=== PATIENT | female | born 1960 | race African-American/Black ===

== ENCOUNTER 2018-11-20 15:06 | Inpatient (IN) | payer OTHER ==
[2018-11-20 16:37] VITALS: BMI 19.6
--- NOTE | 2018-11-20 21:10 | HP ---
"CIWA Score Nausea/Vomitin-Mild Nausea/No Vomiting Muscle Tremors: 3 Anxiety: 2 Agitation: 3 Paroxysmal Sweats: 3 Orientation: 0-Oriented Tacttile Disturbances: 0-None Auditory Disturbances: 0-None Visual Disturbances: 0-None Headache: 0-None Present CIWA-Ar Total Score: 12 - Admission Criteria OASAS Guidelines: Admission for Medically Managed Detox: Requires at least one of the followin. CIWA greater than 12 2. Seizures within the past 24 hours 3. Delirium tremens within the past 24 hours 4. Hallucinations within the past 24 hours 5. Acute intervention needed for co occurring medical disorder 6. Acute intervention needed for co occurring psychiatric disorder 7. Severe withdrawal that cannot be handled at a lower level of care (continued vomiting, continued diarrhea, abnormal vital signs) requiring intravenous medication and/or fluids 8. Admission ROS S - [facility] Chief Complaint: Here w/ alcohol withdrawal. Allergies/Adverse Reactions: Allergies Allergy/AdvReac Type Severity Reaction Status Date / Time Penicillins Allergy Mild Itching Verified 11/20/18 21:56 History of Present Illness: Here for detox from everything. Alcohol use began at age 8. Cocaine use began at age 23. Nicotine use began at age 13. Heroin use began in 20's. Was stabilized on a MMTP and stopped program 2010. States relapsed w/ heroin 1 week ago. U-tox negative for opiates. Hx: Asthma/COPD , HIV, breast mass Patient receives treatment at the [facility] and was seen there earlier today. States is non-compliant with prescribed medications. Encouraged to f/u w/medical provider upon discharge. Hx schizoaffective depression. Denies thoughts of harming self or others. Denies seizure, blackouts, or overdose. Search Terms: Radha Swanson, 1960 Search Date: 11/20/2018 08:55:35 PM The Drug Utilization Report below displays all of the controlled substance prescriptions, if any, that your patient has filled in the last twelve months. The information displayed on this report is compiled from pharmacy submissions to the Department, and accurately reflects the information as submitted by the pharmacies. This report was requested by: Enda Cedeno | Reference #: [id number] There are no results for the search terms that you entered. Exam Limitations: No Limitations - Ebola screening Have you traveled outside of the country in the last 21 days: No Have you had contact with anyone from an Ebola affected area: No Have you been sick,other than usual withdrawal symptoms: No Do you have a fever: No - Review of Systems Constitutional: Diaphoresis, Loss of Appetite EENT: reports: Blurred Vision (Reading glasses), Dental Problems (Full dentures. Chews and swallows okay.) Respiratory: reports: Shortness of Breath (SOB after smoking.) Cardiac: reports: No Symptoms Reported GI: reports: Poor Appetite : reports: No Symptoms Reported Integumentary: reports: Other (Fever blisters) Neuro: reports: Numbness (Occ in hands), Tremors Endocrine: reports: No Symptoms Reported Hematology: reports: No Symptoms Reported Psychiatric: reports: Judgement Intact, Orientated x3, Anxious, Depressed (Hx schizo affective depression. Denies thoughts of harming self or others.) Patient History - Patient Medical History Hx Anemia: No Hx Asthma: Yes (ON ALBUTEROL INHALER) Hx Chronic Obstructive Pulmonary Disease (COPD): Yes Hx Cancer: No Hx Cardiac Disorders: No Hx Congestive Heart Failure: No Hx Hypertension: No Hx Hypercholesterolemia: No Hx Pacemaker: No HX Cerebrovascular Accident: No Hx Seizures: No Hx Dementia: No Hx Diabetes: No Hx Gastrointestinal Disorders: No Hx Liver Disease: No Hx Genitourinary Disorders: Yes (kidney stones) Hx Sexually Transmitted Disorders: No Hx Renal Disease (ESRD): No Hx Human Immunodeficiency Virus (HIV): Yes (SINCE 1989) Hx Hepatitis C: Yes (UNDER THE CARE) Hx Depression: No Hx Suicide Attempt: No Hx Bipolar Disorder: No Hx Schizophrenia: No - Patient Surgical History Past Surgical History: No Hx Neurologic Surgery: No Hx Cataract Extraction: No Hx Cardiac Surgery: No Hx Lung Surgery: No Hx Breast Surgery: No Hx Breast Biopsy: No Hx Abdominal Surgery: No Hx Appendectomy: No Hx Cholecystectomy: No Hx Genitourinary Surgery: No Hx Section: No Hx Orthopedic Surgery: No Other Surgical History: Left wrist surgery for carpel dlishad. Anesthesia Reaction: No - PPD History Previous Implant?: Yes Documented Results: Negative w/proof Implanted On Prior [facility] Admission?: Yes Date: 11/21/17 Results: 0 mm PPD to be Administered?: Yes - Reproductive History Last Menstrual Period: 10/21/03 - Smoking Cessation Smoking history: Current every day smoker Have you smoked in the past 12 months: Yes Aproximately how many cigarettes per day: 5 Cigars Per Day: 0 Hx Chewing Tobacco Use: No Initiated information on smoking cessation: Yes 'Breaking Loose' booklet given: 11/20/18 - Substance & Tx. History Hx Alcohol Use: Yes Hx Substance Use: Yes Substance Use Type: Alcohol, Cocaine, Heroin (Recent relapse. U-Tox negative) Hx Substance Use Treatment: Yes (detox, rehab, past MMTP) - Substances Abused Alcohol Route: Oral Frequency: Daily Amount used: 3-4 cans BEER Age of first use: 13 Date of Last Use: 11/20/18 Heroin Route: SNIFF Frequency: Daily Amount used: 1 BAG Age of first use: 24 Date of Last Use: 11/18/18 Family Disease History - Family Disease History Family Disease History: Other: Mother (ALCOHOL,) Admission Physical Exam [facility] - Vital Signs Vital Signs: Vital Signs - 24 hr 11/20/18 16:35 Temperature 96.9 F L Pulse Rate 87 Respiratory 20 Rate Blood Pressure 146/77 - Physical General Appearance: Yes: Appropriately Dressed, Mild Distress, Tremorous, Sweating (Increased facial moisture), Anxious HEENTM: Yes: EOMI, Hearing grossly Normal, Normal Voice, KRISTINE (Pupils = 3 mm), Pharynx Normal, Nasal Congestion (mild) Respiratory: Yes: Lungs Clear, Other (Noisy, non-productive cough. No rales or rhonchi.) Neck: Yes: No masses,lesions,Nodules, Supple Breast: Yes: Breast Exam Deferred Cardiology: Yes: Regular Rhythm, Regular Rate, S1, S2, Murmur Abdominal: Yes: Non Tender, Flat, Soft, Increased Bowel Sounds Genitourinary: Yes: Within Normal Limits Back: Yes: Normal Inspection Musculoskeletal: Yes: full range of Motion, Gait Steady Extremities: Yes: Normal Capillary Refill, Normal Range of Motion, Non-Tender, Tremors (Mild tremors when arms extended) Neurological: Yes: investment banking analyst II-XII NML intact, Fully Oriented, Alert, Motor Strength 5/5, Normal Mood/Affect Integumentary: Yes: Normal Color, Warm, Other (crusty blister-like lesions on lips) Lymphatic: Yes: Within Normal Limits - Diagnostic (1) Dyspnea Current Visit: Yes Status: Chronic Qualifiers: Dyspnea type: unspecified Qualified Code(s): R06.00 - Dyspnea, unspecified (2) History of opioid abuse Current Visit: Yes Status: Resolved (3) Alcohol dependence with uncomplicated withdrawal Current Visit: Yes Status: Acute (4) Asthma Current Visit: Yes Status: Acute Qualifiers: Asthma severity: mild Asthma persistence: intermittent Asthma complication type: unspecified Qualified Code(s): J45.20 - Mild intermittent asthma, uncomplicated (5) Cocaine dependence Current Visit: Yes Status: Chronic Qualifiers: Substance use status: uncomplicated Qualified Code(s): F14.20 - Cocaine dependence, uncomplicated (6) HIV (human immunodeficiency virus infection) Current Visit: Yes Status: Chronic Qualifiers: HIV symptom status: unspecified Qualified Code(s): B20 - Human immunodeficiency virus [HIV] disease Comment: pt off meds at this time, self-discontinued (7) Nicotine dependence, uncomplicated Current Visit: Yes Status: Chronic Qualifiers: Nicotine product type: cigarettes Qualified Code(s): F17.210 - Nicotine dependence, cigarettes, uncomplicated Comment: smoking cessation advised Cleared for Admission [facility] - Detox or Rehab [facility] Level of Care: Medically Managed Detox Regimen/Protocol: Librium [facility] Breath Alcohol Content Breath Alcohol Content: 0.004 Urine Pregancy Test - Result Urine Test Results: Negative- NO Line Present Urine Drug Screen - Results Drug Screen Negative: No Urine Drug Screen Results: LEOBARDO-Cocaine Inpatient Rehab Admission - Rehab Decision to Admit Inpatient rehab admission?: No"
[2018-11-20] MEDS ORDERED: ACETAMINOPHEN 325 MG TABLET (FP) PO PRN (21:39)
[2018-11-20] MEDS ORDERED: MAG HYDROX/AL HYDROX/SIMETH 30 ML UNIT-DOSE CUP PO PRN (21:39)
[2018-11-20] MEDS ORDERED: MENTHOL/PHENOL 1 EACH UD MM PRN (21:39)
[2018-11-20] MEDS ORDERED: chlordiazePOXIDE HCL 25 MG CAPSULE PO PRN (21:39)
[2018-11-20] MEDS ORDERED: MAGNESIUM CITRATE 300 ML BOTTLE PO PRN (21:39)
[2018-11-20] MEDS ORDERED: P-EPHED 60MG/TRIPROLIDI 2.5MG TABLET PO PRN (21:39)
[2018-11-20] MEDS ORDERED: MAGNESIUM HYDROX 2400MG/30ML ORAL SUSPENSION 30 ML CUP PO PRN (21:39)
[2018-11-20] MEDS ORDERED: LOPERAMIDE HCL 2 MG CAPSULE PO PRN (21:39)
[2018-11-20] MEDS: chlordiazePOXIDE HCL 25 MG CAPSULE PO SCH (23:56)
[2018-11-20] MEDS: guaiFENesin 200 MG/10 ML 10 ML UNIT-DOSE CUPS PO SCH (23:56)
[2018-11-20] MEDS: valACYclovir HCL 500 MG TABLET (FP) PO SCH (23:57)
[2018-11-21] MEDS: THIAMINE HCL 100 MG TABLET (FP) PO SCH ×2 (00:04→22:37)
[2018-11-21 01:08] LABS: URINE APPEARANCE CLOUDY; URINE BILIRUBIN NEGATIVE (<2.0 mg/dL); URINE COLOR AMBER; URINE GLUCOSE (UA) NEGATIVE (NEGATIVE); URINE KETONE NEGATIVE (NEGATIVE); URINE LEUK ESTERASE 2+ (NEGATIVE); URINE NITRITE NEGATIVE (NEGATIVE); URINE PROTEIN 2+ (NEGATIVE); URINE UROBILINOGEN 4.0 E.U/dl mg/dL (0.2-1.0)
[2018-11-21 01:35] LABS: EPI CELLS FEW /HPF (FEW); URINE BACTERIA MODERATE /hpf (NONE SEEN); URINE MUCUS MODERATE
[2018-11-21] MEDS: chlordiazePOXIDE HCL 25 MG CAPSULE PO SCH ×3 (06:34→17:36)
[2018-11-21] MEDS: guaiFENesin 200 MG/10 ML 10 ML UNIT-DOSE CUPS PO SCH ×5 (07:02→22:36)
[2018-11-21] MEDS: ALBUTEROL SO4 2.5/IPRATROPIUM 0.5 INH SOL 3 ML VIAL.NEB. NEB SCH ×3 (09:17→22:35)
[2018-11-21] MEDS: ASPIRIN COATED 81 MG TABLET.EC PO SCH (10:15)
[2018-11-21] MEDS: CEPHALEXIN MONOHYDRATE 500 MG CAPSULE (UD) PO SCH ×2 (10:15→21:42)
[2018-11-21] MEDS: valACYclovir HCL 500 MG TABLET (FP) PO SCH ×2 (10:15→22:37)
[2018-11-21] MEDS: PRENATAL VITAMINS W/ FOLIC ACID TABLET (FP) PO SCH (10:15)
[2018-11-21 10:24] LABS: HEMATOCRIT 31.7 % (32.4-45.2); HEMOGLOBIN 10.6 GM/dL (10.7-15.3); MCH 30.9 pg (25.7-33.7); MCHC 33.5 g/dl (32.0-36.0); MEAN CELL VOLUME 92.3 fl (80-96); MEAN PLT VOLUME 9.4 fl (7.5-11.1); PLATELET COUNT 144 K/MM3 (134-434); RBC 3.44 M/mm3 (3.60-5.2); RDW 12.7 % (11.6-15.6)
[2018-11-21 11:06] LABS: ALBUMIN 2.1 g/dl (3.4-5.0); ALK PHOS 71 U/L (45-117); ANION GAP 6 MMOL/L (8-16); BILIRUBIN,TOTAL 0.7 mg/dL (0.2-1); BLOOD UREA NITROGEN 14 mg/dL (7-18); CALCIUM 7.9 mg/dL (8.5-10.1); CHLORIDE 114 mmol/L (98-107); CO2 23 mmol/L (21-32); GLUCOSE,RANDOM 88 mg/dL (74-106); POTASSIUM 3.5 mmol/L (3.5-5.1); SGOT/AST 59 U/L (15-37); SGPT/ALT 22 U/L (13-61); SODIUM 143 mmol/L (136-145); TOT PROT 8.1 g/dl (6.4-8.2)
--- NOTE | 2018-11-21 11:56 | PN ---
[facility] CIWA - CIWA Score Nausea/Vomitin-No Nausea/No Vomiting Muscle Tremors: 3 Anxiety: 3 Agitation: 3 Paroxysmal Sweats: 3 Orientation: 0-Oriented Tacttile Disturbances: 0-None Auditory Disturbances: 0-None Visual Disturbances: 0-None Headache: 0-None Present CIWA-Ar Total Score: 12 [facility] Progress Note (SOAP) Subjective: sweats mild shakes interrupted sleep body aches agitation Objective: 11/21/18 11:55 Vital Signs Temperature 98.1 F 11/21/18 10:26 Pulse Rate 84 11/21/18 10:26 Respiratory Rate 18 11/21/18 10:26 Blood Pressure 123/80 11/21/18 10:26 O2 Sat by Pulse Oximetry (%) Laboratory Tests 11/20/18 11/21/18 11/21/18 22:57 07:00 07:00 WBC 5.0 RBC 3.44 L Hgb 10.6 L Hct 31.7 L MCV 92.3 MCH 30.9 MCHC 33.5 RDW 12.7 D Plt Count 144 D MPV 9.4 Sodium 143 Potassium 3.5 Chloride 114 H Carbon Dioxide 23 Anion Gap 6 L BUN 14 Creatinine 1.0 Creat Clearance w eGFR 56.95 Random Glucose 88 Calcium 7.9 L Total Bilirubin 0.7 AST 59 H ALT 22 Alkaline Phosphatase 71 Total Protein 8.1 Albumin 2.1 L Urine Color Jinny Urine Appearance Cloudy Urine pH 5.0 Ur Specific [place] 1.026 Urine Protein 2+ H Urine Glucose (UA) Negative Urine Ketones Negative Urine Blood 1+ H Urine Nitrite Negative Urine Bilirubin Negative Urine Urobilinogen 4.0 e.u/dl H Ur Leukocyte Esterase 2+ H Urine WBC (Auto) 491 Urine RBC (Auto) 13 Ur Epithelial Cells Few Urine Bacteria Moderate Urine Mucus Moderate labs noted u/a results noted; will repeat pt denies of any s/s of urinary infection or discomfort Assessment: 11/21/18 11:56 withdrawal sx Plan: continue detox increase fluids will f/u pending labs
--- NOTE | 2018-11-21 16:47 | EKG ---
Test Reason : Blood Pressure : / mmHG Vent. Rate : 086 BPM Atrial Rate : 086 BPM P-R Int : 164 ms QRS Dur : 124 ms QT Int : 404 ms P-R-T Axes : 083 -30 037 degrees QTc Int : 483 ms NORMAL SINUS RHYTHM LEFT AXIS DEVIATION RIGHT BUNDLE BRANCH BLOCK ABNORMAL ECG WHEN COMPARED WITH ECG OF 25-JAN-2018 07:26, NONSPECIFIC T WAVE ABNORMALITY NO LONGER EVIDENT IN LATERAL LEADS Confirmed by TAJ HARRIS, MARTA ([id number]) on 11/21/2018 4:46:47 PM Referred By: BLAZE PAIGE Confirmed By:MARTA VANG MD
[2018-11-21 17:50] LABS: URINE APPEARANCE CLOUDY; URINE BILIRUBIN NEGATIVE (<2.0 mg/dL); URINE COLOR AMBER; URINE GLUCOSE (UA) NEGATIVE (NEGATIVE); URINE KETONE NEGATIVE (NEGATIVE); URINE LEUK ESTERASE 3+ (NEGATIVE); URINE NITRITE POSITIVE (NEGATIVE); URINE PROTEIN 2+ (NEGATIVE); URINE UROBILINOGEN 4.0 E.U/dl mg/dL (0.2-1.0)
[2018-11-21 18:02] LABS: EPI CELLS MODERATE /HPF (FEW); URINE BACTERIA MODERATE /hpf (NONE SEEN); URINE MUCUS RARE
[2018-11-21] MEDS: IBUPROFEN 400 MG TABLET (FP) PO PRN (19:21)
[2018-11-21] MEDS: BUDESONIDE/FORMETEROL FUMARATE 80/4.5 mcg INHALER IH SCH (22:36)
[2018-11-21] MEDS ORDERED: chlordiazePOXIDE HCL 25 MG CAPSULE PO SCH (23:00)
[2018-11-22] MEDS ORDERED: chlordiazePOXIDE HCL 10 MG CAPSULE PO PRN (04:41)
[2018-11-22] MEDS: chlordiazePOXIDE 5 MG CAPSULE PO SCH ×4 (05:33→22:50)
[2018-11-22] MEDS: guaiFENesin 200 MG/10 ML 10 ML UNIT-DOSE CUPS PO SCH ×4 (05:36→17:00)
[2018-11-22] MEDS: CEPHALEXIN MONOHYDRATE 500 MG CAPSULE (UD) PO SCH ×2 (10:19→22:45)
[2018-11-22] MEDS: ASPIRIN COATED 81 MG TABLET.EC PO SCH (10:19)
[2018-11-22] MEDS: BUDESONIDE/FORMETEROL FUMARATE 80/4.5 mcg INHALER IH SCH ×2 (10:19→22:49)
[2018-11-22] MEDS: PRENATAL VITAMINS W/ FOLIC ACID TABLET (FP) PO SCH (10:19)
[2018-11-22] MEDS: valACYclovir HCL 500 MG TABLET (FP) PO SCH ×2 (10:19→22:44)
[2018-11-22] MEDS: ALBUTEROL SO4 2.5/IPRATROPIUM 0.5 INH SOL 3 ML VIAL.NEB. NEB SCH ×3 (10:19→23:16)
[2018-11-22] MEDS ORDERED: NICOTINE POLACRILEX 4 MG GUM BUC PRN (10:59)
--- NOTE | 2018-11-22 12:30 | PN ---
[facility] CIWA - CIWA Score Nausea/Vomitin-No Nausea/No Vomiting Muscle Tremors: 3 Anxiety: 3 Agitation: 3 Paroxysmal Sweats: 2 Orientation: 0-Oriented Tacttile Disturbances: 0-None Auditory Disturbances: 0-None Visual Disturbances: 0-None Headache: 0-None Present CIWA-Ar Total Score: 11 [facility] Progress Note (SOAP) Subjective: low appetite sweats interrupted sleep achy bones Objective: 11/22/18 12:28 Vital Signs Temperature 96.6 F L 11/22/18 09:25 Pulse Rate 68 11/22/18 09:25 Respiratory Rate 18 11/22/18 09:25 Blood Pressure 109/70 11/22/18 09:25 O2 Sat by Pulse Oximetry (%) Laboratory Tests 11/20/18 11/21/18 11/21/18 22:57 07:00 07:00 WBC 5.0 RBC 3.44 L Hgb 10.6 L Hct 31.7 L MCV 92.3 MCH 30.9 MCHC 33.5 RDW 12.7 D Plt Count 144 D MPV 9.4 Sodium 143 Potassium 3.5 Chloride 114 H Carbon Dioxide 23 Anion Gap 6 L BUN 14 Creatinine 1.0 Creat Clearance w eGFR 56.95 Random Glucose 88 Calcium 7.9 L Total Bilirubin 0.7 AST 59 H ALT 22 Alkaline Phosphatase 71 Total Protein 8.1 Albumin 2.1 L Urine Color Jinny Urine Appearance Cloudy Urine pH 5.0 Ur Specific [place] 1.026 Urine Protein 2+ H Urine Glucose (UA) Negative Urine Ketones Negative Urine Blood 1+ H Urine Nitrite Negative Urine Bilirubin Negative Urine Urobilinogen 4.0 e.u/dl H Ur Leukocyte Esterase 2+ H Urine WBC (Auto) 491 Urine RBC (Auto) 13 Ur Epithelial Cells Few Urine Bacteria Moderate Urine Mucus Moderate RPR Titer 11/21/18 11/21/18 07:00 15:00 WBC RBC Hgb Hct MCV MCH MCHC RDW Plt Count MPV Sodium Potassium Chloride Carbon Dioxide Anion Gap BUN Creatinine Creat Clearance w eGFR Random Glucose Calcium Total Bilirubin AST ALT Alkaline Phosphatase Total Protein Albumin Urine Color Jinny Urine Appearance Cloudy Urine pH 6.0 Ur Specific [place] 1.018 Urine Protein 2+ H Urine Glucose (UA) Negative Urine Ketones Negative Urine Blood 2+ H Urine Nitrite Positive Urine Bilirubin Negative Urine Urobilinogen 4.0 e.u/dl H Ur Leukocyte Esterase 3+ H Urine WBC (Auto) 1070 Urine RBC (Auto) 17 Ur Epithelial Cells Moderate Urine Bacteria Moderate Urine Mucus Rare RPR Titer Nonreactive labs noted pt is currently on ABX for UTI aaox3 ambulating no acute distress Assessment: 11/22/18 12:29 withdrawal sx Plan: continue detox increase fluids dietary consultation ordered ensure TID ordered
[2018-11-22] MEDS: IBUPROFEN 400 MG TABLET (FP) PO PRN (18:36)
[2018-11-22] MEDS: THIAMINE HCL 100 MG TABLET (FP) PO SCH (22:44)
[2018-11-23] MEDS: chlordiazePOXIDE 5 MG CAPSULE PO SCH ×4 (05:20→22:03)
[2018-11-23] MEDS: CEPHALEXIN MONOHYDRATE 500 MG CAPSULE (UD) PO SCH (11:04)
[2018-11-23] MEDS: ASPIRIN COATED 81 MG TABLET.EC PO SCH (11:04)
[2018-11-23] MEDS: valACYclovir HCL 500 MG TABLET (FP) PO SCH ×2 (11:05→22:03)
[2018-11-23] MEDS: PRENATAL VITAMINS W/ FOLIC ACID TABLET (FP) PO SCH (11:05)
[2018-11-23] MEDS: BUDESONIDE/FORMETEROL FUMARATE 80/4.5 mcg INHALER IH SCH ×2 (11:05→22:02)
--- NOTE | 2018-11-23 15:03 | PN ---
[facility] Progress Note (SOAP) Subjective: sweats shakes Objective: 11/23/18 15:00 A & O x 3 gait steady Vital Signs Temperature 98.1 F 11/23/18 14:38 Pulse Rate 83 11/23/18 14:38 Respiratory Rate 17 11/23/18 14:38 Blood Pressure 112/69 11/23/18 14:38 O2 Sat by Pulse Oximetry (%) Microbiology 11/21/18 15:00 Urine Culture - Preliminary Urine - Urine Clean Catch Lactose Fermenting Neg Bacilli Assessment: 11/23/18 15:01 withdrawal sx UTI Plan: continue detox keflex to be d/c Bactrim for UTI (see result of ur culture)
[2018-11-23] MEDS: guaiFENesin 200 MG/10 ML 10 ML UNIT-DOSE CUPS PO PRN (22:01)
[2018-11-23] MEDS: MELATONIN 5 MG TABLETS PO PRN (22:02)
[2018-11-23] MEDS: THIAMINE HCL 100 MG TABLET (FP) PO SCH (22:02)
[2018-11-23] MEDS: SULFAMETHOXAZOLE/TRIMETHOPRIM 800MG/160MG D.S. TABLET PO SCH (22:03)
[2018-11-23] MEDS: IBUPROFEN 400 MG TABLET (FP) PO PRN (22:04)
[2018-11-24] MEDS: chlordiazePOXIDE 5 MG CAPSULE PO SCH ×3 (05:27→17:34)
[2018-11-24] MEDS: BUDESONIDE/FORMETEROL FUMARATE 80/4.5 mcg INHALER IH SCH ×2 (10:49→22:28)
[2018-11-24] MEDS: valACYclovir HCL 500 MG TABLET (FP) PO SCH ×2 (10:50→22:28)
[2018-11-24] MEDS: SULFAMETHOXAZOLE/TRIMETHOPRIM 800MG/160MG D.S. TABLET PO SCH ×2 (10:50→22:28)
[2018-11-24] MEDS: PRENATAL VITAMINS W/ FOLIC ACID TABLET (FP) PO SCH (10:50)
[2018-11-24] MEDS: ASPIRIN COATED 81 MG TABLET.EC PO SCH (10:50)
[2018-11-24] MEDS: guaiFENesin 200 MG/10 ML 10 ML UNIT-DOSE CUPS PO PRN (17:37)
--- NOTE | 2018-11-24 17:58 | PN ---
[facility] Progress Note (SOAP) Subjective: Chills Objective: 11/24/18 17:56 Last Vital Signs Temp Pulse Resp BP Pulse Ox 97.1 F L 72 16 124/65 11/24/18 13:31 11/24/18 13:31 11/24/18 13:31 11/24/18 13:31 Laboratory Tests 11/20/18 11/21/18 11/21/18 22:57 07:00 07:00 WBC 5.0 RBC 3.44 L Hgb 10.6 L Hct 31.7 L MCV 92.3 MCH 30.9 MCHC 33.5 RDW 12.7 D Plt Count 144 D MPV 9.4 Sodium 143 Potassium 3.5 Chloride 114 H Carbon Dioxide 23 Anion Gap 6 L BUN 14 Creatinine 1.0 Creat Clearance w eGFR 56.95 Random Glucose 88 Calcium 7.9 L Total Bilirubin 0.7 AST 59 H ALT 22 Alkaline Phosphatase 71 Total Protein 8.1 Albumin 2.1 L Urine Color Jinny Urine Appearance Cloudy Urine pH 5.0 Ur Specific [place] 1.026 Urine Protein 2+ H Urine Glucose (UA) Negative Urine Ketones Negative Urine Blood 1+ H Urine Nitrite Negative Urine Bilirubin Negative Urine Urobilinogen 4.0 e.u/dl H Ur Leukocyte Esterase 2+ H Urine WBC (Auto) 491 Urine RBC (Auto) 13 Ur Epithelial Cells Few Urine Bacteria Moderate Urine Mucus Moderate RPR Titer 11/21/18 11/21/18 07:00 15:00 WBC RBC Hgb Hct MCV MCH MCHC RDW Plt Count MPV Sodium Potassium Chloride Carbon Dioxide Anion Gap BUN Creatinine Creat Clearance w eGFR Random Glucose Calcium Total Bilirubin AST ALT Alkaline Phosphatase Total Protein Albumin Urine Color Jinny Urine Appearance Cloudy Urine pH 6.0 Ur Specific [place] 1.018 Urine Protein 2+ H Urine Glucose (UA) Negative Urine Ketones Negative Urine Blood 2+ H Urine Nitrite Positive Urine Bilirubin Negative Urine Urobilinogen 4.0 e.u/dl H Ur Leukocyte Esterase 3+ H Urine WBC (Auto) 1070 Urine RBC (Auto) 17 Ur Epithelial Cells Moderate Urine Bacteria Moderate Urine Mucus Rare RPR Titer Nonreactive Labs reviewed: UTI noted, urine cx: E. Coli Assessment: 11/24/18 17:57 Withdrawal symptoms Noted with Acute UTI Plan: Continue detox Acute UTI: encouraged PO water hydration, continue bactrim (sensitive as per urine C&S)
[2018-11-24] MEDS: MELATONIN 5 MG TABLETS PO PRN (22:28)
[2018-11-24] MEDS: THIAMINE HCL 100 MG TABLET (FP) PO SCH (22:28)
[2018-11-25] MEDS: IBUPROFEN 400 MG TABLET (FP) PO PRN (06:43)
[2018-11-25 07:57] VITALS: TEMP 98.4
--- NOTE | 2018-11-25 09:35 | DS ---
[facility] Detox Discharge Summary Admission Date: 11/20/18 Discharge Date: 11/25/18 - History Present History: Alcohol Dependence - Physical Exam Results Vital Signs: Vital Signs Temperature 98.4 F 11/25/18 07:56 Pulse Rate 83 11/25/18 07:16 Respiratory Rate 16 11/25/18 07:16 Blood Pressure 140/76 11/25/18 07:16 O2 Sat by Pulse Oximetry (%) - Medication Discharge Medications: Ambulatory Orders Cyproheptadine [Periactin -] 2 mg PO Q12H PRN #30 tablet 05/29/18 Cholecalciferol (Vitamin D3) [Vitamin D3] 1,000 unit PO DAILY #30 capsule Mirtazapine [Remeron -] 30 mg PO DAILY #30 tablet 06/20/18 Quetiapine Fumarate [Seroquel -] 200 mg PO BID #60 tablet 06/20/18 Nitrofurantoin Monohyd/M-Cryst [Macrobid -] 100 mg PO BID #10 capsule 08/21/18 Aspirin [Aspirin EC] 81 mg PO DAILY #30 tablet.dr 09/10/18 Dolutegravir Sodium [Tivicay] 50 mg PO DAILY #30 tablet 09/10/18 Emtricitabine/Tenofov Alafenam [Descovy 200-25 mg Tablet (Nf)] 1 each PO DAILY # 30 tablet 09/10/18 Lactose-Reduced Food [Ensure Plus] 237 ml PO TID #90 liquid 09/10/18 Multivitamins [Multivit ([facility] Formulary)] 1 tab PO DAILY #30 tab 09/10/18 Cephalexin Monohydrate [Keflex -] 500 mg PO BID #14 capsule 09/13/18 Nicotine [Nicotine Patch 7 mg/24 hr] 1 each TD DAILY #14 patch.td24 10/30/18 Nicotine Polacrilex [Nicotine Gum] 2 mg BC ASDIR #1 box 11/14/18 Valacyclovir HCl [Valtrex -] 2,000 mg PO BID #4 tablet 11/20/18 Albuterol Sulfate Inhaler - [Ventolin HFA Inhaler -] 2 inh PO Q4H PRN #1 inh 09/02 Sulfamethoxazole/Trimethoprim [Bactrim DS -] 1 each PO BID #10 tablet 11/25/18 - AMA Did Patient Leave Against Medical Advice: No (referred to [facility] rehab/ aftercare)
[2018-11-25] MEDS: ASPIRIN COATED 81 MG TABLET.EC PO SCH (09:59)
[2018-11-25] MEDS: SULFAMETHOXAZOLE/TRIMETHOPRIM 800MG/160MG D.S. TABLET PO SCH (09:59)
[2018-11-25] MEDS: PRENATAL VITAMINS W/ FOLIC ACID TABLET (FP) PO SCH (09:59)
[2018-11-25] MEDS: valACYclovir HCL 500 MG TABLET (FP) PO SCH (09:59)
[2018-11-25] MEDS: BUDESONIDE/FORMETEROL FUMARATE 80/4.5 mcg INHALER IH SCH (10:00)
[2018-11-25] MEDS: guaiFENesin 200 MG/10 ML 10 ML UNIT-DOSE CUPS PO PRN (10:27)
[2018-11-25 10:37] VITALS: BP 122/73; PULSE 88
== END 2018-11-25 10:32 | disposition home or self-care (01) | DRG 774 ==
LOC: YASAS 15:06 → Y6N 21:50 → Y3E 11-21 08:19 → Y6N 11-21 08:20
PROVIDERS: ADMIT Surgery; ATTEND Surgery
PROC: HZ2ZZZZ Detoxification Services for Substance Abuse Treatment (ICD-10-PCS; principal; 2018-11-20)
DX: F10.230 Alcohol dependence with withdrawal, uncomplicated (principal); F14.20 Cocaine dependence, uncomplicated; F17.210 Nicotine dependence, cigarettes, uncomplicated; J45.20 Mild intermittent asthma, uncomplicated; J44.9 Chronic obstructive pulmonary disease, unspecified; N39.0 Urinary tract infection, site not specified; Z21 Asymptomatic human immunodeficiency virus [HIV] infection status; B18.2 Chronic viral hepatitis C; R01.1 Cardiac murmur, unspecified; R06.00 Dyspnea, unspecified; Z86.59 Personal history of other mental and behavioral disorders
CPT/HCPCS: 36415; 80053; 81003; 81015; 85027; 86593; 87086; 87186; 93005; 93010; 94640

== ENCOUNTER → 2019-06-13 | Outpatient (CLI) | payer OTHER | LOC: YHH 15:31 ==

== ENCOUNTER 2019-06-26 11:27 | Inpatient (IN) | payer OTHER ==
[2019-06-26 11:32] VITALS: BMI 21.6
--- NOTE | 2019-06-26 12:23 | PDOC ---
History of Present Illness - General Chief Complaint: Pain Stated Complaint: LEG PAIN Time Seen by Provider: 06/26/19 11:48 History Source: Patient Exam Limitations: No Limitations - History of Present Illness Initial Comments: Pt is a 59 yo F, with PMH of PAD, CAD (not on AC), HTN, HLD, HIV ( intermittently on Biktarvy), Hep C, polysubstance abuse (prior IVDU), and schizoaffective disorder with delusions, who is presenting for scheduled angiocath with Dr. Galvez. Pt states her pain in her b/l LE is at baseline, and denies any other current complaints. Pt denies any recent fevers/chills, headache, vision changes, syncope, chest pain, palpitations, SOB, nausea/ vomiting, abdominal pain, urinary symptoms, diarrhea/constipation, or leg swelling. Pt is historically non-compliant with medications. Allergies: NKDA PCP: Dr. Cat ([facility]) Vascular: Dr. Galvez (last visit 03/02) Social: Smokes 1/4 ppd. Intermittent crack cocaine and history of extensive polysubstance use (including IVDU) Pt denies any recent travel or sick contacts. Surgical: no relevant history. Family: no relevant history. 06/26/19 14:06 Past History - Travel Traveled outside of the country in the last 30 days: No Close contact w/someone who was outside of country & ill: No - Past Medical History Allergies/Adverse Reactions: Allergies Allergy/AdvReac Type Severity Reaction Status Date / Time Penicillins Allergy Mild Itching Verified 06/26/19 11:28 Home Medications: Ambulatory Orders Lactose-Reduced Food [Ensure Plus] 237 ml PO TID #90 liquid 09/10/18 Albuterol Sulfate Inhaler - [Ventolin HFA Inhaler -] 2 inh PO Q4H PRN #1 inh 09/02 Nicotine Patch [Nicoderm Patch -] 1 mg TD DAILY #30 patch 01/31/19 Aspirin [Aspirin EC] 81 mg PO DAILY #30 tablet. 05/29/19 Mirtazapine [Remeron -] 30 tablet PO HS #30 tablet MDD one tablet 05/29/19 Multivitamin,Ther and Minerals [Vitamin and Minerals] 1 each PO DAILY #30 tablet 05/29/19 Quetiapine Fumarate [Seroquel -] 200 mg PO HS #30 tab 05/29/19 Blood Pressure Test Kit-Wrist [Blood Pressure Kit] 1 each MC DAILY #1 kit Gloves 1 each PRN #1 box 06/23/19 Potassium Chloride [K-Dur -] 20 meq PO DAILY #3 tablet.er 06/24/19 Bictegrav/Emtricit/Tenofov Ala [Biktarvy 50-200-25 mg Tablet] 1 each PO DAILY # 30 tablet 06/26/19 Anemia: No Asthma: Yes Cancer: No Cardiac Disorders: No CVA: No COPD: No CHF: No DVT: Yes Dementia: No Diabetes: No GI Disorders: Yes (cholecystitis , pancreatitis) Disorders: Yes (kidney stones) HTN: No Hypercholesterolemia: No Kidney Stones: No Liver Disease: No Seizures: No Thyroid Disease: No - Surgical History Abdominal Surgery: No Appendectomy: No Cardiac Surgery: No Cholecystectomy: No Lung Surgery: No Neurologic Surgery: No Orthopedic Surgery: No - Reproductive History PID: No - Immunization History Immunization Up to Date: Yes - Suicide/Smoking/Psychosocial Hx Smoking History: Current every day smoker Have you smoked in the past 12 months: Yes Number of Cigarettes Smoked Daily: 20 If you are a former smoker, when did you quit?: 2 - 3 Cigars Per Day: 0 Information on smoking cessation initiated: No 'Breaking Loose' booklet given: 11/20/18 Hx Alcohol Use: No Drug/Substance Use Hx: Yes Substance Use Type: Alcohol, Cocaine, Heroin Hx Substance Use Treatment: Yes (detox, rehab, past [facility]) Review of Systems - Review of Systems Able to Perform ROS?: Yes Is the patient limited Turkish proficient: No Constitutional: Yes: Weight Stable. No: Chills, Diaphoresis, Fever, Loss of Appetite, Malaise, Weakness HEENTM: No: Blurred Vision, Double Vision, Nose Congestion, Throat Pain, Throat Swelling, Mouth Swelling Respiratory: No: Cough, Orthopnea, Shortness of Breath Cardiac (ROS): No: Chest Pain, Edema, Irregular Heart Rate, Lightheadedness, Palpitations, Syncope, Chest Tightness ABD/GI: No: Constipated, Diarrhea, Nausea, Poor Appetite, Poor Fluid Intake, Vomiting : No: Burning, Dysuria, Frequency, Flank Pain, Hematuria, Pain, Urgency Musculoskeletal: Yes: See HPI (chronic b/l LE pain 2/2 PAD), Muscle Pain. No: Back Pain, Joint Pain, Joint Swelling, Muscle Weakness Integumentary: No: Change in Color, Erythema, Rash Neurological: No: Headache, Numbness, Paresthesia, Tingling, Weakness, Unsteady Gait, Ataxia, Dizziness Psychiatric: No: Sleep Pattern Change, Change in Appetite Endocrine: No: Increased Urine, Change in Weight Hematologic/Lymphatic: No: Anemia, Blood Clots, Easy Bleeding, Easy Bruising All Other Systems: Reviewed and Negative *Physical Exam - Vital Signs Last Vital Signs Temp Pulse Resp BP Pulse Ox 98.2 F 81 18 188/83 H 96 06/26/19 11:30 06/26/19 11:30 06/26/19 11:30 06/26/19 11:30 06/26/19 11:30 - Physical Exam Comments: HTN, pt afebrile. Pt very anxious and pacing around the ER, attempting to leave multiple times. Accompanied with multiple social workers. Thin body habitus. Pt alert and oriented x3. Poor insight into medical conditions. hazard mitigation officer generally intact, muscular strength and sensation intact. No midline spinal tenderness, step-offs, or crepitus. Head normocephalic, atraumatic. Eyes PERRLA, EOMI. Oropharynx without erythema or exudates, no LAD b/l. No nasal congestion, hearing intact. Clear heart sounds, S1/S2, no JVD, b/l pedal edema, or heart murmur. Clear lung sounds, no respiratory distress, wheezes, crackles, or accessory muscle use. No abdominal or CVA tenderness to palpation, no rebound, no guarding. Abdomen soft, non-distended, and with normoactive bowel sounds. Skin without jaundice or rash. Poor peripheral pulses in b/l LE. Strong pulses b/l upper extremities. 06/26/19 14:13 ED Treatment Course - LABORATORY CBC & Chemistry Diagram: 06/26/19 13:57 06/26/19 13:57 Medical Decision Making - Medical Decision Making Pt was seen at bedside, also will be seen by attending Dr. Paige. Pt presenting for scheduled procedure with Dr. Galvez. Will obtain pre-op labs, ECG. Pt refused US-guided IV line and is very difficult with staff. Pt pushed my arm away when attempting to complete US-guided IV line, despite pts verbal consent to procedure. Small IV line placed in forearm, labs sent. 06/26/19 14:14 ECG with wide QRS, LAD, RBB. Labs all hemolyzed. Pt had labs drawn a few days ago from [facility]. Getting labwork faxed over. 06/26/19 14:42 Labs from [facility] (done 06/23/2019) showed hypokalemia (3/1), otherwise CBC and CMP were generally WNL. AST 97, ALT 38 Pt admitted to hospitalist team for CTA/angiocath. 06/26/19 15:13 *DC/Admit/Observation/Transfer Diagnosis at time of Disposition: PAD (peripheral artery disease) HIV (human immunodeficiency virus infection) Qualifiers: HIV symptom status: asymptomatic Qualified Code(s): Z21 - Asymptomatic human immunodeficiency virus [HIV] infection status CAD (coronary artery disease) Qualifiers: Coronary Disease-Associated Artery/Lesion type: unspecified vessel or lesion type [place] vs. transplanted heart: [place] heart Associated angina: without angina Qualified Code(s): I25.10 - Atherosclerotic heart disease of [place] coronary artery without angina pectoris Hepatitis C Qualifiers: Viral hepatitis chronicity: unspecified Hepatic coma status: without hepatic coma Qualified Code(s): B19.20 - Unspecified viral hepatitis C without hepatic coma Schizoaffective disorder Qualifiers: Schizoaffective disorder type: unspecified Qualified Code(s): F25.9 - Schizoaffective disorder, unspecified - Discharge Dispostion Condition at time of disposition: Stable Decision to Admit order: Yes - Referrals - Patient Instructions - Post Discharge Activity
--- NOTE | 2019-06-26 14:22 | PDOC ---
Attending Attestation - Resident Resident Name: Kalani Bledsoe - ED Attending Attestation I have performed the following: I have examined & evaluated the patient, The case was reviewed & discussed with the resident, I agree w/resident's findings & plan - HPI HPI: 06/26/19 14:21 59-year-old female HIV, peripheral vascular disease from [facility] for worsening claudication symptoms, plan for angioplasty. - Physicial Exam PE: 06/26/19 14:21 Vitals as noted, elevated blood pressure Alert, no acute distress Heart is regular, lungs are clear Abdomen benign - Medical Decision Making 06/26/19 14:22 59-year-old female with known peripheral vascular disease scheduled for angioplasty in the setting of worsening claudication. Preoperative labs Dr. Galvez aware Admit Heart Score/ECG Review #1 ECG reviewed & interpreted by me at: 14:36 General ECG Interpretation: Sinus Rhythm, Normal Rate (70), Normal Intervals ( qtc 514, rbbb), No acute ischemic changes
[2019-06-26] MEDS ORDERED: SODIUM CHLORIDE 1,000 ML IV SCH (16:15)
--- NOTE | 2019-06-26 16:21 | HP ---
CHIEF COMPLAINT: PAD PCP: [facility] HISTORY OF PRESENT ILLNESS: 59 y/o F with PMHx of PAD, CAD (prior ?[place]), HTN, HLD, HIV (on Biktarvy), Hep C, Polysubstance abuse (still smokes crack cocaine, last use yesterday, Prior hx of IV Heroin use), Schizoaffective disorder presents with B/L Le pain. Patient says she has had 8/10 b/l LE tightness and pain without radiation for many years. She is only able to walk about 1 block before the tightness and pain set in causing her to stop. Her pain only improves with rest; Tylenol and NSAID have provided her minimal relief. She continues to smoke tobacco, 5-10 cigs daily. Additionally complains of constipation. During my interview, patient was very agitated and answered questions with very few words. She endorses intermittent medication compliance and admits she does not take her meds daily. Denies any recent fevers, chills, chest pain, SOB, nausea, vomiting, diarrhea. ER course was notable for: (1) (2) (3) Recent Travel: Denies PAST MEDICAL HISTORY: As above PAST SURGICAL HISTORY: Patient refuses to answer Social History: Smokin-10 cigarrettes daily Alcohol: Occasionally Drugs: Uses crack cocaine (she wont quantify but endorses last use yesterday), Prior hx of IVDA (Heroin) Family History: Discussed with patient, she says both parents are without health issues Allergies Penicillins Allergy (Mild, Verified 06/26/19 11:28) Itching HOME MEDICATIONS: Home Medications Medication Instructions Recorded Lactose-Reduced Food [Ensure Plus] 237 ml PO TID #90 liquid 09/10/18 Albuterol Sulfate Inhaler - 2 inh PO Q4H PRN #1 inh 11/25/18 [Ventolin HFA Inhaler -] Nicotine Patch [Nicoderm Patch -] 1 mg TD DAILY #30 patch 01/31/19 Aspirin [Aspirin EC] 81 mg PO DAILY #30 tablet. 05/29/19 Mirtazapine [Remeron -] 30 tablet PO HS #30 tablet MDD one 05/29/19 tablet Multivitamin,Ther and Minerals 1 each PO DAILY #30 tablet 05/29/19 [Vitamin and Minerals] Quetiapine Fumarate [Seroquel -] 200 mg PO HS #30 tab 05/29/19 Blood Pressure Test Kit-Wrist 1 each DAILY #1 kit 06/23/19 [Blood Pressure Kit] Gloves 1 each PRN #1 box 06/23/19 Potassium Chloride [K-Dur -] 20 meq PO DAILY #3 tablet.er 06/24/19 Bictegrav/Emtricit/Tenofov Ala 1 each PO DAILY #30 tablet 06/26/19 [Biktarvy 50-200-25 mg Tablet] REVIEW OF SYSTEMS As per HPI PHYSICAL EXAMINATION Vital Signs - 24 hr 06/26/19 11:30 Temperature 98.2 F Pulse Rate 81 Respiratory 18 Rate Blood Pressure 188/83 H O2 Sat by Pulse 96 Oximetry (%) GENERAL: Awake, alert, Agitated and only allowed limited exam EYES: EOMI LUNGS: CTAB. No wheezes, no crackles. HEART: Regular rate and rhythm, normal S1 and S2 without murmur ABDOMEN: Soft, nontender, not distended, + bowel sounds, no guarding, no rebound EXTREMITIES: 2+ pulses in the upper extremities only, patient did not allow footware removal for lower extremity pulse check. No peripheral edema. NEUROLOGICAL: Cranial nerves II-XII intact. SKIN: Warm, dry Laboratory Results - last 24 hr 06/26/19 06/26/19 06/26/19 13:57 13:57 13:57 WBC Cancelled Corrected WBC (auto) Cancelled RBC Cancelled Hgb Cancelled Hct Cancelled MCV Cancelled MCH Cancelled MCHC Cancelled RDW Cancelled Plt Count Cancelled MPV Cancelled Absolute Neuts (auto) Cancelled Neutrophils % Cancelled Lymphocytes % Cancelled Monocytes % Cancelled Eosinophils % Cancelled Basophils % Cancelled Nucleated RBC % Cancelled Platelet Estimate Cancelled Platelet Comment Cancelled PT with INR Cancelled INR Cancelled PTT (Actin FS) Cancelled Sodium Cancelled Potassium Cancelled Chloride Cancelled Carbon Dioxide Cancelled Anion Gap Cancelled BUN Cancelled Creatinine Cancelled Est GFR (CKD-EPI)AfAm Cancelled Est GFR (CKD-EPI)NonAf Cancelled Random Glucose Cancelled Calcium Cancelled Total Bilirubin Cancelled AST Cancelled ALT Cancelled Alkaline Phosphatase Cancelled Total Protein Cancelled Albumin Cancelled Active Medications Heparin Sodium (Porcine) (Heparin -) 5,000 unit SQ TID VIKY Sodium Chloride (Normal Saline -) 1,000 mls @ 75 mls/hr IV ASDIR VIKY Stop: 06/27/19 05:34 ASSESSMENT/PLAN: 59 y/o F with PMHx of PAD, CAD (prior ?[place]), HTN, HLD, HIV (on Biktarvy), Hep C, Polysubstance abuse (still smokes crack cocaine, last use yesterday, Prior hx of IV Heroin use), Schizoaffective disorder presents with B/L Le pain. #PAD -Vascular surgery (Dr. Galvez) Consulted for Angiocath -Lab draw hemolyzed in ED; Pt follows at [facility] where labs were drawn on 06/23. Will attempt to have pre-op labs drawn again including, PT/PTT/INR/T&S -NPO after midnight #Polysubstance abuse -Last crack cocaine use yesterday, Not currently experiencing withdrawal sx's -Continue to monitor; Will consider benzo's for sx's of withdrawal -May need out detox/rehab referral to [facility] #HIV -Resume home dose Biktarvy #HTN -Resume home meds once clinically appropriate; Needs Med Rec #Schizoaffective disorder -Resume home meds once clinically appropriate; Needs Med Rec #Hx of Hep C -Unclear if treated, Will recommend outpatient GI Follow up #Hx of CAD -Denies stent placement, Not currently in active chest pain -Continue to monitor #FEN -NS @ 75 -Replete Lytes PRN -Regular diet; NPO after midnight for procedure #PPx -DVT: Heparin Dispo: Admit to med-surg Visit type - Emergency Visit Emergency Visit: Yes ED Registration Date: 06/26/19 Care time: The patient presented to the Emergency Department on the above date and was hospitalized for further evaluation of their emergent condition. - New Patient This patient is new to me today: Yes Date on this admission: 06/27/19 - Critical Care Critical Care patient: No ATTENDING PHYSICIAN STATEMENT I saw and evaluated the patient. I reviewed the resident's note and discussed the case with the resident. I agree with the resident's findings and plan as documented. SUBJECTIVE: OBJECTIVE: ASSESSMENT AND PLAN:
--- NOTE | 2019-06-26 21:13 | PN ---
Teaching Attending Note Name of Resident: Lilly Antonio ATTENDING PHYSICIAN STATEMENT I saw and evaluated the patient. I reviewed the resident's note and discussed the case with the resident. I agree with the resident's findings and plan as documented. SUBJECTIVE: Patient is a 59yo female with PMHx of PAD, CAD , HTN, HLD, HIV (on Biktarvy), Hep C, Polysubstance abuse (still smokes crack cocaine, last use yesterday, Prior hx of IV Heroin use), Schizoaffective disorder presents with B/L Le pain. As per patient, has been trying to have CTA done but they are unable to complete the studies since unable to find a good vein for the contrast. OBJECTIVE: Vital Signs Temperature 98.1 F 06/26/19 18:23 Pulse Rate 88 06/26/19 18:23 Respiratory Rate 19 06/26/19 18:23 Blood Pressure 190/90 H 06/26/19 18:23 O2 Sat by Pulse Oximetry (%) 100 06/26/19 18:23 GENERAL: The patient is awake, alert, and fully oriented, in no acute distress. HEAD: Normal with no signs of trauma. EYES: PERRL, extraocular movements intact, sclera anicteric, conjunctiva clear. ENT: Ears normal, oropharynx clear without exudates, moist mucous membranes. NECK: Trachea midline, full range of motion, supple. LUNGS: Breath sounds equal, clear to auscultation bilaterally, no wheezes, no crackles, no accessory muscle use. HEART: Regular rate and rhythm, S1, S2 without murmur, rub or gallop. ABDOMEN: Soft, nontender, nondistended, normoactive bowel sounds, no guarding, no rebound, no hepatosplenomegaly, no masses. EXTREMITIES:weak pulses le , warm, no edema. NEUROLOGICAL: Cranial nerves II through XII grossly intact. Normal speech, gait is stable. PSYCH: Normal mood, normal affect. SKIN: Warm, dry, normal turgor, no rashes or lesions noted CBCD WBC Cancelled 06/26/19 13:57 RBC Cancelled 06/26/19 13:57 Hgb Cancelled 06/26/19 13:57 Hct Cancelled 06/26/19 13:57 MCV Cancelled 06/26/19 13:57 MCHC Cancelled 06/26/19 13:57 RDW Cancelled 06/26/19 13:57 Plt Count Cancelled 06/26/19 13:57 MPV Cancelled 06/26/19 13:57 CMP Sodium Cancelled 06/26/19 13:57 Potassium Cancelled 06/26/19 13:57 Chloride Cancelled 06/26/19 13:57 Carbon Dioxide Cancelled 06/26/19 13:57 Anion Gap Cancelled 06/26/19 13:57 BUN Cancelled 06/26/19 13:57 Creatinine Cancelled 06/26/19 13:57 Random Glucose Cancelled 06/26/19 13:57 Calcium Cancelled 06/26/19 13:57 Total Bilirubin Cancelled 06/26/19 13:57 AST Cancelled 06/26/19 13:57 ALT Cancelled 06/26/19 13:57 Alkaline Phosphatase Cancelled 06/26/19 13:57 Total Protein Cancelled 06/26/19 13:57 Albumin Cancelled 06/26/19 13:57 Current Medications Generic Name Dose Route Start Last Admin Trade Name Taisha PRN Reason Stop Dose Admin Heparin Sodium (Porcine) 5,000 unit 06/26/19 22:00 Heparin - SQ TID [facility] Sodium Chloride 1,000 mls @ 75 mls/hr 06/26/19 16:15 Normal Saline - IV 06/27/19 05:34 ASDIR [facility] Home Medications Medication Instructions Recorded Lactose-Reduced Food [Ensure Plus] 237 ml PO TID #90 liquid 09/10/18 Albuterol Sulfate Inhaler - 2 inh PO Q4H PRN #1 inh 11/25/18 [Ventolin HFA Inhaler -] Nicotine Patch [Nicoderm Patch -] 1 mg TD DAILY #30 patch 01/31/19 Aspirin [Aspirin EC] 81 mg PO DAILY #30 tablet. 05/29/19 Mirtazapine [Remeron -] 30 tablet PO HS #30 tablet MDD one 05/29/19 tablet Multivitamin,Ther and Minerals 1 each PO DAILY #30 tablet 05/29/19 [Vitamin and Minerals] Quetiapine Fumarate [Seroquel -] 200 mg PO HS #30 tab 05/29/19 Blood Pressure Test Kit-Wrist 1 each MC DAILY #1 kit 06/23/19 [Blood Pressure Kit] Gloves 1 each PRN #1 box 06/23/19 Potassium Chloride [K-Dur -] 20 meq PO DAILY #3 tablet.er 06/24/19 Bictegrav/Emtricit/Tenofov Ala 1 each PO DAILY #30 tablet 06/26/19 [Biktarvy 50-200-25 mg Tablet] ASSESSMENT AND PLAN: Patient is a 59 y/o Female with PMHx of PAD, CAD (prior [place]), HTN, HLD, HIV (on Biktarvy), Hep C, Polysubstance abuse (still smokes crack cocaine, last use yesterday, Prior hx of IV Heroin use), Schizoaffective disorder presents with B/ L LE pain. #HTN Uncontrolled: On Norvasc 10mg now #PAD : vascular for consult for CTA ,Dr. Galvez Consulted for Angiocath, NPO after midnight Pt follows at [facility] where labs were drawn on 06/23. #Hx of CAD # Hx of hep C # HLD #HIV #Polysubstance abuse #PPx:DVT: Heparin
[2019-06-26] MEDS ORDERED: ALBUTEROL SO4 8 GM HFA INHALER IH PRN (21:21)
[2019-06-26] MEDS: HEPARIN NA (PORCINE) 5,000 UNITS/ML 1ML VIAL SQ SCH (21:23)
[2019-06-26] MEDS ORDERED: amLODIPine BESYLATE 10 MG TABLET (FP) PO ONE (21:24)
[2019-06-27] MEDS: HEPARIN NA (PORCINE) 5,000 UNITS/ML 1ML VIAL SQ SCH ×2 (06:10→14:32)
[2019-06-27] MEDS ORDERED: amLODIPine BESYLATE 5 MG TABLET (FP) PO ONE (06:20)
[2019-06-27] MEDS ORDERED: ASPIRIN COATED 81 MG TABLET.EC PO SCH (08:00)
--- NOTE | 2019-06-27 08:22 | PN ---
Physical Exam: SUBJECTIVE: Patient seen and examined at bedside- overnight patient refused her IV and refused to take her medications; she states that she is no longer having leg pain; is hungry she denies any CP/SOB/N/V OBJECTIVE: Vital Signs Period Temp Pulse Resp BP Sys/Gates Pulse Ox Last 24 Hr 98.1 F-98.5 F 58-88 18-20 167-190/64-90 96-100 GENERAL: The patient is awake, alert, and fully oriented, in no acute distress. EYES: PEERLA; EOMIl; no scleral icterus NECK: no JVD; no lymphadenopathy. LUNGS: CTA B/L; no rales, rhonchi or wheezing HEART: Regular rate and rhythm, S1, S2 without murmur, rub or gallop. ABDOMEN: Soft, NT/ND +BS in all 4 quadrants EXTREMITIES: 1+ pulses, warm, well-perfused, no edema. NEUROLOGICAL: Cranial nerves II through XII grossly intact. strength 5/5 BL UE and LE; sensation fully intact PSYCH: Normal mood, normal affect. SKIN: Warm, dry, normal turgor, no rashes or lesions noted Laboratory Results - last 24 hr 06/26/19 06/26/19 06/26/19 13:57 13:57 13:57 WBC Cancelled Corrected WBC (auto) Cancelled RBC Cancelled Hgb Cancelled Hct Cancelled MCV Cancelled MCH Cancelled MCHC Cancelled RDW Cancelled Plt Count Cancelled MPV Cancelled Absolute Neuts (auto) Cancelled Neutrophils % Cancelled Lymphocytes % Cancelled Monocytes % Cancelled Eosinophils % Cancelled Basophils % Cancelled Nucleated RBC % Cancelled Platelet Estimate Cancelled Platelet Comment Cancelled PT with INR Cancelled INR Cancelled PTT (Actin FS) Cancelled Sodium Cancelled Potassium Cancelled Chloride Cancelled Carbon Dioxide Cancelled Anion Gap Cancelled BUN Cancelled Creatinine Cancelled Est GFR (CKD-EPI)AfAm Cancelled Est GFR (CKD-EPI)NonAf Cancelled Random Glucose Cancelled Calcium Cancelled Total Bilirubin Cancelled AST Cancelled ALT Cancelled Alkaline Phosphatase Cancelled Total Protein Cancelled Albumin Cancelled Active Medications Generic Name Dose Route Start Last Admin Trade Name Freq PRN Reason Stop Dose Admin Albuterol Sulfate 2 puff 06/26/19 21:21 Ventolin Hfa Inhaler - IH Q4H PRN COUGH Aspirin 81 mg 06/27/19 08:00 Ecotrin - PO DAILY@0800 [facility] Heparin Sodium (Porcine) 5,000 unit 06/26/19 22:00 06/27/19 06:10 Heparin - SQ Not Given TID [facility] Nicotine 21 mg 06/27/19 10:00 Nicoderm Patch - TD DAILY [facility] ASSESSMENT/PLAN: 59 y/o F with PMHx of PAD, CAD (prior ?[place]), HTN, HLD, HIV (on Biktarvy), Hep C, Polysubstance abuse (still smokes crack cocaine, last use yesterday, Prior hx of IV Heroin use), Schizoaffective disorder presents with B/L Le pain. #PAD -Vascular surgery (Dr. Galvez) Consulted for Angiocath -patient going for angiogram this AM with dr. Galvez #HTN c/w home medications (need to be med rec) #HIV c/w Biktarvy #FEN -NS @ 75 -Replete Lytes PRN -Regular diet; #PPx -DVT: Heparin ATTENDING PHYSICIAN STATEMENT I saw and evaluated the patient. I reviewed the resident's note and discussed the case with the resident. I agree with the resident's findings and plan as documented. SUBJECTIVE: OBJECTIVE: ASSESSMENT AND PLAN:
[2019-06-27 08:28] LABS: BASO % 0.3 % (0-2.0); EOS % 2.8 % (0-4.5); HEMATOCRIT 36.3 % (32.4-45.2); LYMPH % 47.4 % (8-40); MCH 30.2 pg (25.7-33.7); MCHC 33.1 g/dl (32.0-36.0); MEAN CELL VOLUME 91.4 fl (80-96); MEAN PLT VOLUME 8.8 fl (7.5-11.1); MONO % 11.7 % (3.8-10.2); NEUT % 37.8 % (42.8-82.8); PLATELET COUNT 134 K/MM3 (134-434); RBC 3.97 M/mm3 (3.60-5.2); RDW 13.3 % (11.6-15.6); WHITE BLOOD COUNT 3.5 K/mm3 (4.0-10.0)
[2019-06-27 08:42] LABS: INR 1.11 (0.83-1.09); PROTHROMBIN TIME (PATIENT) 13.1 SEC (9.7-13.0)
[2019-06-27 08:45] LABS: ACTIVATED PTT 34.1 SECONDS (25.2-36.5)
[2019-06-27 09:13] LABS: ALBUMIN 2.5 g/dl (3.4-5.0); BILIRUBIN,TOTAL 0.7 mg/dL (0.2-1); BLOOD UREA NITROGEN 14.7 mg/dL (7-18); CALCIUM 8.6 mg/dL (8.5-10.1); CREATININE 1.1 mg/dL (0.55-1.3); MAGNESIUM 2.2 mg/dL (1.8-2.4); PHOSPHOROUS 3.6 mg/dL (2.5-4.9); TOT PROT 8.3 g/dl (6.4-8.2)
--- NOTE | 2019-06-27 09:57 | PN ---
Teaching Attending Note Name of Resident: Talia Miller ATTENDING PHYSICIAN STATEMENT I saw and evaluated the patient. I reviewed the resident's note and discussed the case with the resident. I agree with the resident's findings and plan as documented. SUBJECTIVE: Patient went for CTA but was not successful, Dr. Galvez seen the patient but patient does not want to stay for further w/u. OBJECTIVE: Vital Signs Temperature 98.5 F 06/27/19 06:01 Pulse Rate 58 L 06/27/19 06:01 Respiratory Rate 20 06/27/19 06:01 Blood Pressure 167/78 06/27/19 06:01 O2 Sat by Pulse Oximetry (%) 100 06/26/19 21:00 GENERAL: The patient is awake, alert, and fully oriented, in no acute distress. HEAD: Normal with no signs of trauma. EYES: PERRL, extraocular movements intact, sclera anicteric, conjunctiva clear. ENT: Ears normal, oropharynx clear without exudates, moist mucous membranes. NECK: Trachea midline, full range of motion, supple. LUNGS: Breath sounds equal, clear to auscultation bilaterally, no wheezes, no crackles, no accessory muscle use. HEART: Regular rate and rhythm, S1, S2 without murmur, rub or gallop. ABDOMEN: Soft, nontender, nondistended, normoactive bowel sounds, no guarding, no rebound, no hepatosplenomegaly, no masses. EXTREMITIES: pulses positive but weak, warm, well-perfused, no edema. NEUROLOGICAL: Cranial nerves II through XII grossly intact. Normal speech, gait not observed. PSYCH: Normal mood, normal affect. SKIN: Warm, dry, normal turgor, no rashes or lesions noted CBCD WBC 3.5 K/mm3 (4.0-10.0) L 06/27/19 07:59 RBC 3.97 M/mm3 (3.60-5.2) 06/27/19 07:59 Hgb 12.0 GM/dL (10.7-15.3) 06/27/19 07:59 Hct 36.3 % (32.4-45.2) 06/27/19 07:59 MCV 91.4 fl (80-96) 06/27/19 07:59 MCHC 33.1 g/dl (32.0-36.0) 06/27/19 07:59 RDW 13.3 % (11.6-15.6) 06/27/19 07:59 Plt Count 134 K/MM3 (134-434) 06/27/19 07:59 MPV 8.8 fl (7.5-11.1) 06/27/19 07:59 CMP Sodium 141 mmol/L (136-145) 06/27/19 07:59 Potassium 3.0 mmol/L (3.5-5.1) L 06/27/19 07:59 Chloride 107 mmol/L (98-107) 06/27/19 07:59 Carbon Dioxide 29 mmol/L (21-32) 06/27/19 07:59 Anion Gap 4 MMOL/L (8-16) L 06/27/19 07:59 BUN 14.7 mg/dL (7-18) 06/27/19 07:59 Creatinine 1.1 mg/dL (0.55-1.3) 06/27/19 07:59 Random Glucose 74 mg/dL (74-106) 06/27/19 07:59 Calcium 8.6 mg/dL (8.5-10.1) 06/27/19 07:59 Total Bilirubin 0.7 mg/dL (0.2-1) 06/27/19 07:59 AST 93 U/L (15-37) H 06/27/19 07:59 ALT 38 U/L (13-61) 06/27/19 07:59 Alkaline Phosphatase 118 U/L (45-117) H 06/27/19 07:59 Total Protein 8.3 g/dl (6.4-8.2) H 06/27/19 07:59 Albumin 2.5 g/dl (3.4-5.0) L 06/27/19 07:59 Current Medications Generic Name Dose Route Start Last Admin Trade Name Freq PRN Reason Stop Dose Admin Albuterol Sulfate 2 puff 06/26/19 21:21 Ventolin Hfa Inhaler - IH Q4H PRN COUGH Aspirin 81 mg 06/27/19 08:00 Ecotrin - PO DAILY@0800 VIKY Heparin Sodium (Porcine) 5,000 unit 06/26/19 22:00 06/27/19 06:10 Heparin - SQ Not Given TID VIKY Nicotine 21 mg 06/27/19 10:00 Nicoderm Patch - TD DAILY [facility] Home Medications Medication Instructions Recorded Lactose-Reduced Food [Ensure Plus] 237 ml PO TID #90 liquid 09/10/18 Albuterol Sulfate Inhaler - 2 inh PO Q4H PRN #1 inh 11/25/18 [Ventolin HFA Inhaler -] Nicotine Patch [Nicoderm Patch -] 1 mg TD DAILY #30 patch 01/31/19 Aspirin [Aspirin EC] 81 mg PO DAILY #30 tablet. 05/29/19 Mirtazapine [Remeron -] 30 tablet PO HS #30 tablet MDD one 05/29/19 tablet Multivitamin,Ther and Minerals 1 each PO DAILY #30 tablet 05/29/19 [Vitamin and Minerals] Quetiapine Fumarate [Seroquel -] 200 mg PO HS #30 tab 05/29/19 Blood Pressure Test Kit-Wrist 1 each MC DAILY #1 kit 06/23/19 [Blood Pressure Kit] Gloves 1 each MC PRN #1 box 06/23/19 Potassium Chloride [K-Dur -] 20 meq PO DAILY #3 tablet.er 06/24/19 Bictegrav/Emtricit/Tenofov Ala 1 each PO DAILY #30 tablet 06/26/19 [Biktarvy 50-200-25 mg Tablet] Laboratory Tests 06/27/19 07:59 PT with INR 13.10 H INR 1.11 H PTT (Actin FS) 34.1 echo is normal ASSESSMENT AND PLAN: Patient is a 59 y/o F with PMHx of PAD, CAD (prior [place]), HTN, HLD, HIV (on Biktarvy), Hep C, Polysubstance abuse (still smokes crack cocaine, last use yesterday, Prior hx of IV Heroin use), Schizoaffective disorder presents with B/ L LE pain, admitted for CTA via central line and PAD evaluation. As per cardio no contraindications for angio /SURGERY. AND She is low to intermediate risk. #HTN Uncontrolled: On Norvasc 10mg , WILL DISCHARGE HER ON NORVASC #PAD : vascular for consult for CTA , PATIENT REFUSED since was not successful, and plan is for another time when patient is ready # Hx of hep C # HLD #HIV #Polysubstance abuse discussed with multiple times, patient does not wish to have this procedure at this time.
[2019-06-27] MEDS ORDERED: NICOTINE 21 MG/24 HOURS TOPICAL PATCH TD SCH (10:00)
--- NOTE | 2019-06-27 11:15 | ECHO ---
Name: SUSY TREVINO Exam:Adult Echocardiogram Study Date: 06/27/2019 07:22 AM Age: 59 yrs Reason For Study: LV Function Height: 65 in Weight: 130 lb BSA: 1.6 m2 MMode/2D Measurements & Calculations IVSd: 0.92 cm Ao root diam: 2.6 cm LVIDd: 4.9 cm LA dimension: 3.0 cm LVIDs: 3.4 cm LVPWd: 0.77 cm EDV(Teich): 111.9 ml LVOT diam: 2.0 cm ESV(Teich): 46.4 ml LAV (MOD-bp): 52.6 ml Doppler Measurements & Calculations MV E max mike: 48.0 cm/sec Ao V2 max: 126.9 cm/sec MV A max mike: 63.1 cm/sec Ao max P.5 mmHg MV E/A: 0.76 AI P1/2t: 657.5 msec MV dec time: 0.26 sec HUGH(V,D): 1.7 cm2 AI max mike: 403.9 cm/sec LV V1 max P.0 mmHg AI max P.2 mmHg LV V1 max: 69.8 cm/sec AI dec slope: 179.9 cm/sec2 MR max mike: 503.3 cm/sec PA V2 max: 80.1 cm/sec MR max P.8 mmHg PA max P.6 mmHg Med Peak E' Mike: 5.5 cm/sec PI Vmax: 127.6 cm/sec Med E/e': 8.7 Lat Peak E' Mike: 6.1 cm/sec Lat E/e': 7.9 Left Ventricle Left ventricular systolic function is normal. Ejection Fraction = 55-60%. Right Ventricle The right ventricle is normal in size and function. Atria Normal left and right atrial size and function. Mitral Valve There is mild mitral valve thickening. There is no mitral valve stenosis. There is moderate mitral regurgitation. Tricuspid Valve The tricuspid valve is normal in structure and function. There is trace tricuspid regurgitation. Aortic Valve The aortic valve opens well. No hemodynamically significant valvular aortic stenosis. Mild aortic regurgitation. Pulmonic Valve The pulmonic valve is not well seen, but is grossly normal. There is no pulmonic valvular stenosis. Great Vessels The aortic root is normal size. Pericardium/Pleura There is no pericardial effusion. Interpretation Summary Left ventricular systolic function is normal. Ejection Fraction = 55-60%. The right ventricle is normal in size and function. There is mild mitral valve thickening. There is moderate mitral regurgitation. Mild aortic regurgitation. There is no pericardial effusion. MD Luo *Urmila 06/27/2019 11:14 AM
--- NOTE | 2019-06-27 14:08 | EKG ---
Test Reason : Blood Pressure : / mmHG Vent. Rate : 070 BPM Atrial Rate : 088 BPM P-R Int : 000 ms QRS Dur : 126 ms QT Int : 476 ms P-R-T Axes : 000 -33 -43 degrees QTc Int : 514 ms POOR DATA QUALITY, INTERPRETATION MAY BE ADVERSELY AFFECTED PROBABLY NORMAL SINUS RHYTHM LEFT AXIS DEVIATION RIGHT BUNDLE BRANCH BLOCK ABNORMAL ECG Confirmed by FABIANO TYLER MD ([id number]) on 06/27/2019 2:08:20 PM Referred By: Confirmed By:FABIANO TYLER MD
--- NOTE | 2019-06-27 14:33 | CON.CARD ---
Consult Consult Specialty:: Cardiology Referred by:: Leon Reason for Consultation:: preop eval - History of Present Illness Chief Complaint: leg pain History of Present Illness: She is a 59 y/o F with PMHx of PAD, CAD (prior [place]), HTN, HLD, HIV (on Biktarvy) , Hep C, Polysubstance abuse (still smokes crack cocaine, last use yesterday, Prior hx of IV Heroin use), Schizoaffective disorder presents with B/L LE pain. Admitted for CTA via central line and PAD evaluation. No chest pain, orthopnea, pnd or edema. Exercise tolerance is limited by leg pain. - History Source History Provided By: Patient, Medical Record - Past Medical History Pulmonary: Yes: COPD ...LMP: 10/21/03 ...: No Infectious Disease: Yes: HIV - Alcohol/Substance Use Hx Alcohol Use: No - Smoking History Smoking history: Current every day smoker Have you smoked in the past 12 months: Yes Aproximately how many cigarettes per day: 20 If you are a former smoker, when did you quit?: 2 - 3 Home Medications - Allergies Allergies/Adverse Reactions: Allergies Allergy/AdvReac Type Severity Reaction Status Date / Time Penicillins Allergy Mild Itching Verified 06/26/19 11:28 - Home Medications Home Medications: Ambulatory Orders Lactose-Reduced Food [Ensure Plus] 237 ml PO TID #90 liquid 09/10/18 Albuterol Sulfate Inhaler - [Ventolin HFA Inhaler -] 2 inh PO Q4H PRN #1 inh 09/02 Nicotine Patch [Nicoderm Patch -] 1 mg TD DAILY #30 patch 01/31/19 Aspirin [Aspirin EC] 81 mg PO DAILY #30 tablet. 05/29/19 Mirtazapine [Remeron -] 30 tablet PO HS #30 tablet MDD one tablet 05/29/19 Multivitamin,Ther and Minerals [Vitamin and Minerals] 1 each PO DAILY #30 tablet 05/29/19 Quetiapine Fumarate [Seroquel -] 200 mg PO HS #30 tab 05/29/19 Blood Pressure Test Kit-Wrist [Blood Pressure Kit] 1 each MC DAILY #1 kit Gloves 1 each MC PRN #1 box 06/23/19 Potassium Chloride [K-Dur -] 20 meq PO DAILY #3 tablet.er 06/24/19 Bictegrav/Emtricit/Tenofov Ala [Biktarvy 50-200-25 mg Tablet] 1 each PO DAILY # 30 tablet 06/26/19 Family Disease History - Family Disease History Family Disease History: Other: Mother (ALCOHOL,) Vital Signs: Vital Signs Temperature 98.5 F 06/27/19 09:20 Pulse Rate 70 06/27/19 09:20 Respiratory Rate 20 06/27/19 06:01 Blood Pressure 157/88 06/27/19 09:20 O2 Sat by Pulse Oximetry (%) 100 06/26/19 21:00 HENT: Yes: Atraumatic, Normocephalic (refused other physical examination.) Neck: Yes: WNL, Supple, Trachea Midline Cardiovascular: Yes: WNL, Regular Rate and Rhythm Musculoskeletal: Yes: WNL Extremities: Yes: WNL Integumentary: Yes: WNL Neurological: Yes: WNL, Alert, Oriented ...Motor Strength: WNL Psychiatric: Yes: WNL, Alert, Oriented - Other Data Labs, Other Data: CBC, BMP 06/27/19 07:59 06/27/19 07:59 INR, PTT INR 1.11 (0.83-1.09) H 06/27/19 07:59 Imaging - Results EKG: Report Reviewed (nsr lad rbbb) Assessment/Plan She is a 59 y/o F with PMHx of PAD, CAD (prior [place]), HTN, HLD, HIV (on Biktarvy) , Hep C, Polysubstance abuse (still smokes crack cocaine, last use yesterday, Prior hx of IV Heroin use), Schizoaffective disorder presents with B/L LE pain. Admitted for CTA via central line and PAD evaluation. No chest pain, orthopnea, pnd or edema. Exercise tolerance is limited by leg pain. Plan: -echo is normal -There are no cardiac contraindications to angio and surgery. She is low to intermediate risk. -will see prn.
[2019-06-27 15:03] VITALS: BP 158/100; PULSE 76; TEMP 97.8
--- NOTE | 2019-06-27 15:49 | DS ---
Physical Exam: SUBJECTIVE: Patient seen and examined OBJECTIVE: Vital Signs Period Temp Pulse Resp BP Sys/Gates Pulse Ox Last 24 Hr 97.8 F-98.5 F 58-88 19-20 157-190/64-100 100-100 PHYSICAL EXAM GENERAL: Awake, alert, Agitated and only allowed limited exam EYES: EOMI LUNGS: CTAB. No wheezes, no crackles. HEART: Regular rate and rhythm, normal S1 and S2 without murmur ABDOMEN: Soft, nontender, not distended, + bowel sounds, no guarding, no rebound EXTREMITIES: 2+ pulses in the upper extremities only, patient did not allow footware removal for lower extremity pulse check. No peripheral edema. NEUROLOGICAL: Cranial nerves II-XII intact. SKIN: Warm, dry LABS Laboratory Results - last 24 hr 06/27/19 06/27/19 06/27/19 07:59 07:59 07:59 WBC 3.5 L RBC 3.97 Hgb 12.0 Hct 36.3 MCV 91.4 MCH 30.2 MCHC 33.1 RDW 13.3 Plt Count 134 MPV 8.8 Absolute Neuts (auto) 1.3 L Neutrophils % 37.8 L Lymphocytes % 47.4 H Monocytes % 11.7 H Eosinophils % 2.8 Basophils % 0.3 Nucleated RBC % 0 PT with INR 13.10 H INR 1.11 H PTT (Actin FS) 34.1 Sodium 141 Potassium 3.0 L Chloride 107 Carbon Dioxide 29 Anion Gap 4 L BUN 14.7 Creatinine 1.1 Est GFR (CKD-EPI)AfAm 63.64 Est GFR (CKD-EPI)NonAf 54.91 Random Glucose 74 Calcium 8.6 Phosphorus 3.6 Magnesium 2.2 Total Bilirubin 0.7 AST 93 H ALT 38 Alkaline Phosphatase 118 H Total Protein 8.3 H Albumin 2.5 L HOSPITAL COURSE: Date of Admission:06/26/19 59 y/o F with PMHx of PAD, CAD (prior ?[place]), HTN, HLD, HIV (on Biktarvy), Hep C, Polysubstance abuse (still smokes crack cocaine, last use yesterday, Prior hx of IV Heroin use), Schizoaffective disorder presents with B/L Le pain. Patient says she has had 8/10 b/l LE tightness and pain without radiation for many years. She is only able to walk about 1 block before the tightness and pain set in causing her to stop. Her pain only improves with rest; Tylenol and NSAID have provided her minimal relief. She continues to smoke tobacco, 5-10 cigs daily. Additionally complains of constipation. kerrieint did not undergo procdure due to venous issue will come back at a later date Date of Discharge: 06/27/19 Minutes to complete discharge: 35 Discharge Summary Reason For Visit: PERIPHERAL ARTERIAL DISEASE Current Active Problems PAD (peripheral artery disease) (Acute) CAD (coronary artery disease) (Chronic) HIV (human immunodeficiency virus infection) (Chronic) Hepatitis C (Chronic) Schizoaffective disorder (Chronic) Condition: Stable - Instructions Diet, Activity, Other Instructions: You came to the ED with leg pain that has been ongoing. You were seen by Dr Galvez however no procedure was done due to scheduling and miscommunication issues. You were discharged home Please resume all of your home medications Please follow up with Dr. Cat within one week Please follow up with Dr Galvez- it is of utmost importance to make an appointment with him and next time you come to the hospital for a procedure a plan needs to be in place in regards to venous access, timing and cardiac clearance by cardiologists etc. if you begin to experience worsening pain, chest pains, shortness of breath, nausea/vomiting please return to the emergency room immediately Referrals: Kathy Cat, [employer] [Primary Care Provider] - 1 Week Morgan Galvez MD [Non Staff, Medical] - 1 Week Disposition: HOME - Home Medications Comprehensive Discharge Medication List: Ambulatory Orders Albuterol Sulfate Inhaler - [Ventolin HFA Inhaler -] 2 inh PO Q4H PRN #1 inh 09/02 Aspirin [Aspirin EC] 81 mg PO DAILY #30 tablet. 05/29/19 Multivitamin,Ther and Minerals [Vitamin and Minerals] 1 each PO DAILY #30 tablet 05/29/19 Quetiapine Fumarate [Seroquel -] 200 mg PO HS #30 tab 05/29/19 Bictegrav/Emtricit/Tenofov Ala [Biktarvy 50-200-25 mg Tablet] 1 each PO DAILY # 30 tablet 06/26/19 Mirtazapine [Remeron -] 30 mg PO DAILY MDD one tablet 06/27/19 This patient is new to me today: Yes Date on this admission: 06/27/19 Emergency Visit: Yes ED Registration Date: 06/26/19 Care time: The patient presented to the Emergency Department on the above date and was hospitalized for further evaluation of their emergent condition. Critical Care patient: No - Discharge Referral Referred to [facility] Med P.C[facility] No ATTENDING PHYSICIAN STATEMENT I saw and evaluated the patient. I reviewed the resident's note and discussed the case with the resident. I agree with the resident's findings and plan as documented. SUBJECTIVE: OBJECTIVE: ASSESSMENT AND PLAN:
--- NOTE | 2019-06-27 16:08 | PN ---
Progress Note (short form) - Note Progress Note: Extensive conversation between Dr Galvez, patient and patients social workers. Discussed hospital and preoperative plan with pt which includes: need for central line placement (pt has poor access due to years of IV heroine abuse- multiple outpt attempts at CTA have failed due to pts poor access). Pt would also require cardiology consultation and stress test, therefore central line would need to remain in place for the duration of the admission. Pt adamantly refusing to stay in house for workup and planning (has a history of compliance issues). Pt aware circulatory issues may continue to progress and can lead to gangrene if untreated, especially as pt is an active smoker. Pt verbalized understanding. Pt and social workers instructed to return to the ER if amendable to workup and intervention. Hospitalist notified. Please contact vascular if any further questions/concerns
== END 2019-06-27 17:45 | disposition home or self-care (01) | DRG 197 ==
LOC: JERFT 11:27 → JER 11:27 → JERBED 14:50 → J6S 17:38
PROVIDERS: ADMIT Internal Medicine; ATTEND Internal Medicine
DX: I73.9 Peripheral vascular disease, unspecified (principal); I25.10 Atherosclerotic heart disease of native coronary artery without angina pectoris; I45.10 Unspecified right bundle-branch block; F17.210 Nicotine dependence, cigarettes, uncomplicated; F14.10 Cocaine abuse, uncomplicated; B19.20 Unspecified viral hepatitis C without hepatic coma; Z21 Asymptomatic human immunodeficiency virus [HIV] infection status; E78.5 Hyperlipidemia, unspecified; I10 Essential (primary) hypertension; F25.9 Schizoaffective disorder, unspecified
CPT/HCPCS: 36415; 80053; 83735; 84100; 85025; 85610; 85730; 93005; 93010; 93306-TC; 97116-GP; 97161-GP; 99285-25; J7030